=== PATIENT | female | born 1955 | race Caucasian/White ===

== ENCOUNTER → 2022-02-28 | Outpatient (CLI) | payer OTHER | LOC: LAB SHORT 15:15 | DX: E11.65 Type 2 diabetes mellitus with hyperglycemia (principal) | CPT/HCPCS: 82043 ==

== ENCOUNTER → 2023-08-04 | Outpatient (CLI) | payer MEDICARE, OTHER | END | disposition home or self-care (01) | LOC: LAB SHORT 17:36 → LAB 17:36 | DX: R30.0 Dysuria (principal) | CPT/HCPCS: 87077; 87086; 87186 ==

== ENCOUNTER → 2023-12-18 | Outpatient (CLI) | payer MEDICARE ==
[2023-12-18 19:21] LABS: Protein, Urine Quantitative 6.5 mg/dL (0.0-11.9)
[2023-12-18 19:23] LABS: Microalbumin, Urine Quant. 25.7 mg/L (0.000-20.000)
== END | disposition home or self-care (01) ==
LOC: LAB EV 05:24 → LAB SHORT 05:24
PROVIDERS: Internal Medicine Nephrology
DX: N18.2 Chronic kidney disease, stage 2 (mild) (principal); D63.1 Anemia in chronic kidney disease; N25.81 Secondary hyperparathyroidism of renal origin; E55.9 Vitamin D deficiency, unspecified; E78.00 Pure hypercholesterolemia, unspecified; R76.9 Abnormal immunological finding in serum, unspecified; R94.5 Abnormal results of liver function studies; R94.6 Abnormal results of thyroid function studies; D51.8 Other vitamin B12 deficiency anemias; D52.8 Other folate deficiency anemias; D50.9 Iron deficiency anemia, unspecified
CPT/HCPCS: 81050; 82043; 82570; 84156

== ENCOUNTER → 2023-12-20 | Outpatient (CLI) | payer MEDICARE | END | disposition home or self-care (01) | LOC: LAB 15:37 → LAB SHORT 15:37 | DX: N39.0 Urinary tract infection, site not specified (principal) | CPT/HCPCS: 87086 ==